=== PATIENT | male | born 1950 | race Caucasian/White ===

== ENCOUNTER 2019-02-10 15:42 | Emergency (ER) | payer BC ==
--- NOTE | 2019-02-10 16:04 | EDM.PDOC ---
ED HPI GENERAL MEDICAL PROBLEM - General Chief Complaint: Lower Extremity Injury/Pain Stated Complaint: POSSIBLE BLOOD CLOT Time Seen by Provider: 02/10/19 16:02 Source of Information: Reports: Patient History Limitations: Reports: No Limitations - History of Present Illness INITIAL COMMENTS - FREE TEXT/NARRATIVE: HISTORY AND PHYSICAL: History of present illness: Patient is a 68-year-old male presents to the ED with concern of a blood clot in his right leg. He states he had a right hip replacement about 1 week ago. He noticed swelling of his right thigh 3 days ago. He denies chest pain, worsening shortness of breath, hemoptysis, orthopnea. He has states he has chronic shortness of breath and uses inhalers but is not new or worsened. He has a follow up with his PCP in 4 days. Review of systems: As per history of present illness and below otherwise all systems reviewed and negative. Past medical history: As per history of present illness and as reviewed below otherwise noncontributory. Surgical history: As per history of present illness and as reviewed below otherwise noncontributory. Social history: No reported history of drug or alcohol abuse. Family history: As per history of present illness and as reviewed below otherwise noncontributory. Physical exam: General: Patient sitting comfortably in no acute distress and nontoxic appearing HEENT: Atraumatic, normocephalic, pupils reactive, negative for conjunctival pallor or scleral icterus, mucous membranes moist, throat clear, neck supple, nontender, trachea midline. No meningeal signs. Lungs: Clear to auscultation, breath sounds equal bilaterally, chest nontender. Heart: S1S2, regular, negative for clicks, rubs, or overt murmur. Abdomen: Soft, nondistended, nontender. Negative for masses or hepatosplenomegaly. Negative for costovertebral tenderness. No rigidity, rebound , guarding. Pelvis: Stable nontender. Genitourinary: Deferred. Rectal: Deferred. Extremities: right calf is swollen with calf tenderness to palpation. No erythema or warmth. Neurovascular unremarkable. No pitting edema bilaterally. Neuro: Awake, alert, oriented. Cranial nerves II through XII unremarkable. Cerebellum unremarkable. Motor and sensory unremarkable throughout. Exam nonfocal. Notes: Diagnostics: Right venous Doppler US Therapeutics: [] Prescriptions: Impression: Right lower extremity swelling Plan: Elevated leg and wear compression stockings as instructed Follow up with primary care provider Return to ED as needed as discussed Definitive disposition and diagnosis as appropriate pending reevaluation and review of above. Right Upper Thigh Pain Score (Numeric/FACES): 9 - Related Data Allergies Allergy/AdvReac Type Severity Reaction Status Date / Time No Known Allergies Allergy Verified 02/10/19 16:00 Home Meds: Home Meds Acetaminophen [Tylenol Extra Strength] 500 mg PO Q6H 02/10/19 [History] Albuterol [Ventolin HFA] 2 puff INH ASDIRECTED 02/10/19 [History] Ascorbic Acid [Vitamin C] 1 tab PO DAILY 02/10/19 [History] Aspirin [Halfprin] 81 mg PO BID 02/10/19 [History] Cholecalciferol (Vitamin D3) [D3-2000] 1 cap PO DAILY 02/10/19 [History] Coconut Oil 1 cap PO DAILY 02/10/19 [History] Enalapril [Vasotec] 20 mg PO DAILY 02/10/19 [History] Fish Oil/Borage/Flax/Om3,6,9#1 [[place] 3-6-9 1,200 mg Softgel] 1 cap PO DAILY [History] Fluticasone Propion/Salmeterol [Wixela 500-50 Inhub] 1 puff INH ASDIRECTED 02/10 [History] Gabapentin [Neurontin] 600 mg PO ASDIRECTED 02/10/19 [History] Ginseng 1 cap PO DAILY 02/10/19 [History] Glucosamine/Msm/Chondroitin A [Glucosamine Chondroit MSM Tab] 1 tab PO DAILY [History] Hydrocodone/Acetaminophen [Hydrocodon-Acetaminophn 10-325] 1 tab PO Q4H PRN [History] Metoprolol Succinate [Toprol XL] 25 mg PO DAILY 02/10/19 [History] Multivitamin [Daily Multiple Vitamin] 1 tab PO DAILY 02/10/19 [History] [place]-3/DHA/Epa/Fish Oil [Fish Oil 1,000 mg Softgel] 1 cap PO DAILY 02/10/19 [ History] Ondansetron [Zofran ODT] 4 mg PO Q8H PRN 02/10/19 [History] Sennosides/Docusate Sodium [Senna Plus 8.6-50 mg Tablet] 2 tab PO BEDTIME [History] Simvastatin [Zocor] 40 mg PO DAILY 02/10/19 [History] Tamsulosin HCl [Flomax] 0.4 mg PO DAILY 02/10/19 [History] Ubidecarenone [Coenzyme Q-10] 1 cap PO ASDIRECTED 02/10/19 [History] Vit C/Cardona & Celery Ex/Grp E [Tart Cardona] 1 tab PO ASDIRECTED 02/10/19 [ History] traMADol HCl [Tramadol HCl] 50 mg PO Q4H PRN 02/10/19 [History] Review of Systems - Review of Systems Review Of Systems: Comprehensive ROS is negative, except as noted in HPI. ED EXAM, GENERAL - Physical Exam Exam: See Below (see dictation) Course - Vital Signs Last Recorded V/S: Last Vital Signs Temp 98.5 F 02/10/19 15:55 Pulse 77 02/10/19 15:55 Resp 18 02/10/19 15:55 BP 150/88 H 02/10/19 15:55 Pulse Ox 99 02/10/19 15:55 Departure - Departure Time of Disposition: 17:18 Disposition: Home, Self-Care 01 Condition: Good Clinical Impression: Right leg swelling - Discharge Information Referrals: Abhijit Espinosa MD [Primary Care Provider] - Forms: ED Department Discharge Additional Instructions: The following information is given to patients seen in the emergency department who are being discharged to home. This information is to outline your options for follow-up care. We provide all patients seen in our emergency department with a follow-up referral. The need for follow-up, as well as the timing and circumstances, are variable depending upon the specifics of your emergency department visit. If you don't have a primary care physician on staff, we will provide you with a referral. We always advise you to contact your personal physician following an emergency department visit to inform them of the circumstance of the visit and for follow-up with them and/or the need for any referrals to a consulting specialist. The emergency department will also refer you to a specialist when appropriate. This referral assures that you have the opportunity for follow-up care with a specialist. All of these measure are taken in an effort to provide you with optimal care, which includes your follow-up. Under all circumstances we always encourage you to contact your private physician who remains a resource for coordinating your care. When calling for follow-up care, please make the office aware that this follow-up is from your recent emergency room visit. If for any reason you are refused follow-up, please contact the [facility] Emergency Department at and asked to speak to the emergency department charge nurse. [facility] [address] [place] [address] [id number] [address] [address] Elevated leg and wear compression stockings as instructed Follow up with primary care provider Return to ED as needed as discussed
--- NOTE | 2019-02-10 17:03 | US ---
INDICATION: Pain. COMPARISON: None. TECHNIQUE: A compression venous ultrasound exam was performed of the right lower extremity using avila-scale imaging, color Doppler and spectral Doppler analysis. FINDINGS: Sonographic imaging of the right lower extremity demonstrates normal compressibility and color Doppler venous blood flow within the common femoral vein, deep femoral vein, and the proximal greater saphenous vein. Within the thigh, the femoral vein is patent and compressible. At a lower level, the popliteal and posterior tibial veins also show normal compressibility and color Doppler venous blood flow. Limited imaging of the contralateral groin demonstrates a normal spectral waveform and color Doppler venous blood flow within the left common femoral vein. IMPRESSION: Normal venous ultrasound exam. No evidence of deep vein thrombosis within the right lower extremity. Dictated by Lucía Kendrick MD @ Feb 10 2019 5:01PM Signed by Dr. Lucía Kendrick @ Feb 10 2019 5:02PM
== END 2019-02-10 17:47 | disposition home or self-care (01) ==
LOC: MW.ED 15:42
DX: R22.41 Localized swelling, mass and lump, right lower limb (principal); Z96.641 Presence of right artificial hip joint; Z79.82 Long term (current) use of aspirin; Z79.899 Other long term (current) drug therapy
CPT/HCPCS: 93971-26-RT; 93971-RT; 99283-25

== ENCOUNTER 2020-04-06 11:17 | Emergency (ER) | payer MEDICARE, OTHER ==
--- NOTE | 2020-04-06 11:42 | EDM.PDOC ---
ED HPI GENERAL MEDICAL PROBLEM - General Chief Complaint: Respiratory Problem Stated Complaint: COVID POS Time Seen by Provider: 04/06/20 11:23 Source of Information: Reports: Patient History Limitations: Reports: No Limitations - History of Present Illness INITIAL COMMENTS - FREE TEXT/NARRATIVE: Patient is a 69-year-old male who was sent over from clinic because he presented there for runny nose. Patient feels like he has a sinus infection as he has had multiple in the past. When he came to the clinic he was told him that he was Covid positive and did not want to evaluate him had him come to the ER instead. Patient states that he has no other complaints and is not sure why sent to the ER. Patient denies any chest pain shortness of breath nausea vomiting fevers or chills. Patient is concerned that if he does not get his sinus infection look that he may develop with pneumonia that is why he came into the the clinic. Again patient has no symptoms from his COVID-19 diagnosis. headache Pain Score (Numeric/FACES): 4 - Related Data Allergies Allergy/AdvReac Type Severity Reaction Status Date / Time No Known Allergies Allergy Verified 04/06/20 11:35 Home Meds: Home Meds Acetaminophen [Tylenol Extra Strength] 500 mg PO Q6H 02/10/19 [History] Albuterol [Ventolin HFA] 2 puff INH ASDIRECTED 02/10/19 [History] Ascorbic Acid [Vitamin C] 1 tab PO DAILY 02/10/19 [History] Aspirin [Halfprin] 81 mg PO BID 02/10/19 [History] C/Sourcherry/Celery/Grape Seed [Tart Cardona] 1 tab PO ASDIRECTED 02/10/19 [History] Cholecalciferol (Vitamin D3) [D3-2000] 1 cap PO DAILY 02/10/19 [History] Coconut Oil 1 cap PO DAILY 02/10/19 [History] Enalapril [Vasotec] 20 mg PO DAILY 02/10/19 [History] Fish Oil/Borage/Flax/Om3,6,9 1 [[place] 3-6-9 1,200 mg Softgel] 1 cap PO DAILY 02/10/19 [History] Fluticasone Propion/Salmeterol [Wixela 500-50 Inhub] 1 puff INH ASDIRECTED 02/10/19 [History] Gabapentin [Neurontin] 600 mg PO ASDIRECTED 02/10/19 [History] Ginseng 1 cap PO DAILY 02/10/19 [History] Glucosamine/Msm/Chondroitin A [Glucosamine Chondroit MSM Tab] 1 tab PO DAILY 02/10/19 [History] Hydrocodone/Acetaminophen [Hydrocodon-Acetaminophn 10-325] 1 tab PO Q4H PRN 02/10/19 [History] Metoprolol Succinate [Toprol XL] 25 mg PO DAILY 02/10/19 [History] Multivitamin [Daily Multiple Vitamin] 1 tab PO DAILY 02/10/19 [History] [place]-3/DHA/Epa/Fish Oil [Fish Oil 1,000 mg Softgel] 1 cap PO DAILY 02/10/19 [History] Ondansetron [Zofran ODT] 4 mg PO Q8H PRN 02/10/19 [History] Sennosides/Docusate Sodium [Senna Plus 8.6-50 mg Tablet] 2 tab PO BEDTIME 02/10/19 [History] Simvastatin [Zocor] 40 mg PO DAILY 02/10/19 [History] Tamsulosin HCl [Flomax] 0.4 mg PO DAILY 02/10/19 [History] Ubidecarenone [Coenzyme Q-10] 1 cap PO ASDIRECTED 02/10/19 [History] traMADol HCl [Tramadol HCl] 50 mg PO Q4H PRN 02/10/19 [History] Amoxicillin/Clavulanate K [Augmentin 875-125 MG] 1 tab PO BID 10 Days #20 tablet 04/06/20 [Rx] Past Medical History Cardiovascular History: Reports: Bypass, CAD, Hypertension, CA Respiratory History: Reports: SOB Genitourinary History: Reports: Retention, Urinary - Infectious Disease History Infectious Disease History: Reports: Chicken Pox, Measles, Mumps - Past Surgical History Musculoskeletal Surgical History: Reports: Hip Replacement Social & Family History - Family History Family Medical History: No Pertinent Family History ED ROS GENERAL - Review of Systems Review Of Systems: See Below Constitutional: Reports: No Symptoms HEENT: Reports: Rhinitis Respiratory: Reports: No Symptoms Cardiovascular: Reports: No Symptoms Endocrine: Reports: No Symptoms GI/Abdominal: Reports: No Symptoms : Reports: No Symptoms Musculoskeletal: Reports: No Symptoms Skin: Reports: No Symptoms Neurological: Reports: No Symptoms Psychiatric: Reports: No Symptoms Hematologic/Lymphatic: Reports: No Symptoms Immunologic: Reports: No Symptoms ED EXAM, GENERAL - Physical Exam Exam: See Below Exam Limited By: No Limitations General Appearance: Alert, WD/WN Eye Exam: Bilateral Eye: EOMI, PERRL Nose: Nasal Drainage Neck: Non-Tender Respiratory/Chest: No Respiratory Distress, Lungs Clear, Normal Breath Sounds Cardiovascular: Normal Peripheral Pulses, Regular Rate, Rhythm GI/Abdominal: Normal Bowel Sounds, Soft, Non-Tender Back Exam: Normal Inspection, Full Range of Motion Extremities: Normal Range of Motion Neurological: Alert, Oriented, CN II-XII Intact, Normal Cognition, Normal Gait Course - Vital Signs Last Recorded V/S: Last Vital Signs Temp 96.1 F L 04/06/20 11:30 Pulse 71 04/06/20 11:30 Resp 16 04/06/20 11:30 BP 126/71 04/06/20 11:30 Pulse Ox 95 04/06/20 11:30 - Orders/Labs/Meds Orders: Active Orders 24 hr Category Date Time Status Amoxicillin/Clavulanate K [Augmentin 875 MG/125 MG] Med 04/06/20 11:37 Once 1 tab PO ONETIME ONE Departure - Departure Time of Disposition: 11:40 Disposition: Home, Self-Care 01 Condition: Good Clinical Impression: Sinusitis - Discharge Information *PRESCRIPTION DRUG MONITORING PROGRAM REVIEWED*: Not Applicable *COPY OF PRESCRIPTION DRUG MONITORING REPORT IN PATIENT BARBRA: Not Applicable Instructions: Sinusitis, Adult, [id number] Sepsis Event Note (ED) - Evaluation Sepsis Screening Result: No Definite Risk - Focused Exam Vital Signs: Vital Signs Temp Pulse Resp BP Pulse Ox 04/06/20 11:30 96.1 F L 71 16 126/71 95 - My Orders Last 24 Hours: My Active Orders 04/06/20 11:37 Amoxicillin/Clavulanate K [Augmentin 875 MG/125 MG] 1 tab PO ONETIME ONE - Assessment/Plan Last 24 Hours: My Active Orders 04/06/20 11:37 Amoxicillin/Clavulanate K [Augmentin 875 MG/125 MG] 1 tab PO ONETIME ONE Assessment:: Is a 69-year-old male who was sent here for evaluation as he could not be seen in clinic due to a COVID-19 diagnosis. Patient presented for runny nose. Patient states that he has had some pain in his sinuses for the past few days and had multiple complications in the past. Due to this patient will be started on amoxicillin and can follow-up once his quarantine period Has passed with his primary care physician.
[2020-04-06] MEDS: Amoxicillin/Clavulanate K 875-125 MG Tab PO ONE (11:55)
== END 2020-04-06 11:55 | disposition home or self-care (01) ==
LOC: MW.ED 11:17
DX: J32.9 Chronic sinusitis, unspecified (principal); I25.10 Atherosclerotic heart disease of native coronary artery without angina pectoris; I10 Essential (primary) hypertension; I25.2 Old myocardial infarction; Z79.82 Long term (current) use of aspirin; Z79.899 Other long term (current) drug therapy; Z95.1 Presence of aortocoronary bypass graft
CPT/HCPCS: 99282; A9270